=== PATIENT | female | born 1975 | race American Indian/Alaskan Native ===

== ENCOUNTER 2019-02-15 14:55 | Emergency (ER) | payer SELFPAY ==
[2019-02-15 15:14] VITALS: BP 148/95
--- NOTE | 2019-02-15 15:15 | Event Note ---
ED Screening Note Date of service: 02/15/19 Time: 15:15 ED Screening Note: 43 y/o female comes in for left foot pain s/p fall yesterday. Took nothing for pain. This initial assessment/diagnostic orders/clinical plan/treatment(s) is/are subject to change based on patients health status, clinical progression and re- assessment by fellow clinical providers in the ED. Further treatment and workup at subsequent clinical providers discretion. Patient/guardian urged not to elope from the ED as their condition may be serious if not clinically assessed and managed. Initial orders include:
--- NOTE | 2019-02-15 15:50 | XRay Report ---
Left foot, 3 views INDICATION: Pain following fall today FINDINGS: The joint space is maintained. There is no fracture or dislocation. No spurring or arthriti c change. No bone lesion or periostitis. No significant abnormality. IMPRESSION: Negative study Signer Name: Sarbjit Cervantes MD Signed: 02/15/2019 3:45 PM Workstation Name: [id number]
[2019-02-15] MEDS ORDERED: TYLENOL #3 PO ONE (16:22)
--- NOTE | 2019-02-15 16:40 | Emergency Department Report ---
ED Lower Extremity HPI - General Chief Complaint: Extremity Injury, Lower Stated Complaint: FALL LT FOOT INJURY Time Seen by Provider: 02/15/19 15:53 Source: patient Mode of arrival: Wheelchair Limitations: No Limitations - History of Present Illness Initial Comments: This is a 43-year-old female nontoxic, well nourished in appearance, no acute signs of distress presents to the ED with c/o of left foot pain 1 day. Patient stated that she had a trip and fall to left foot. Patient denies any other trauma. Patient denies any numbness, tingling, fever, chills, nausea, vomiting, chest pain, shortness of breath, headache, stiff neck. Patient denies any joint swelling or joint redness. Patient denies decreased range of motion. Patient stated has decreased gait due to pain. Patient denies any allergies or significant past medical history. MD Complaint: foot injury -: days(s) (1) Injury: Foot: Left Severity: mild Severity scale (0 -10): 8 Improves With: immobilization Worsens With: weight bearing, movement, palpation Context: fall Associated Symptoms: swelling, able to partially bear weight, ambulatory. denies: snap/pop sensation, numbness, tingling, unable to bear weight - Related Data Previous Rx's Medication Instructions Recorded Last Taken Type Acetaminophen/Codeine [Tylenol #3] 1 tab PO Q6H PRN #20 tab 01/23/15 Unknown Rx Promethazine [Phenergan] 25 mg PO Q6H PRN #20 tablet 01/23/15 Unknown Rx Acetaminophen/Codeine [Tylenol 1 tab PO Q6H PRN #12 tab 02/15/19 Unknown Rx /Codeine # 3 tab] Ibuprofen [Motrin] 600 mg PO Q8H PRN #20 tablet 02/15/19 Unknown Rx Allergies Allergy/AdvReac Type Severity Reaction Status Date / Time No Known Allergies Allergy Verified 05/07/16 17:34 ED Review of Systems ROS: Stated complaint: FALL LT FOOT INJURY Other details as noted in HPI Constitutional: denies: chills, fever Eyes: denies: eye pain, eye discharge, vision change ENT: denies: ear pain, throat pain Respiratory: denies: cough, shortness of breath, wheezing Cardiovascular: denies: chest pain, palpitations Endocrine: no symptoms reported Gastrointestinal: denies: abdominal pain, nausea, diarrhea Genitourinary: denies: urgency, dysuria, discharge Musculoskeletal: denies: back pain, joint swelling, arthralgia Skin: denies: rash, lesions Neurological: denies: headache, weakness, paresthesias Psychiatric: denies: anxiety, depression Hematological/Lymphatic: denies: easy bleeding, easy bruising ED Past Medical Hx - Past Medical History Previous Medical History?: Yes Additional medical history: headaches - Surgical History Past Surgical History?: Yes Additional Surgical History: - Social History Smoking Status: Never Smoker Substance Use Type: Alcohol - Medications Home Medications: Home Medications Medication Instructions Recorded Confirmed Last Taken Type Acetaminophen/Codeine [Tylenol #3] 1 tab PO Q6H PRN #20 tab 01/23/15 Unknown Rx Promethazine [Phenergan] 25 mg PO Q6H PRN #20 tablet 01/23/15 Unknown Rx Acetaminophen/Codeine [Tylenol 1 tab PO Q6H PRN #12 tab 02/15/19 Unknown Rx /Codeine # 3 tab] Ibuprofen [Motrin] 600 mg PO Q8H PRN #20 tablet 02/15/19 Unknown Rx ED Physical Exam - General Limitations: No Limitations General appearance: alert, in no apparent distress - Head Head exam: Present: atraumatic, normocephalic - Neck Neck exam: Present: normal inspection, full ROM. Absent: tenderness, meningismus, lymphadenopathy - Extremities Exam Extremities exam: Present: normal inspection, full ROM, tenderness, normal capillary refill. Absent: joint swelling, calf tenderness - Expanded Lower Extremity Exam Left Hip exam: Present: normal inspection, full ROM. Absent: tenderness, swelling Upper Leg exam: Present: normal inspection, full ROM. Absent: tenderness, swelling Knee exam: Present: normal inspection, full ROM. Absent: tenderness, swelling Lower Leg exam: Present: normal inspection, full ROM. Absent: tenderness, swelling Ankle exam: Present: normal inspection, full ROM. Absent: tenderness, swelling Foot/Toe exam: Present: normal inspection, full ROM, tenderness, swelling, ecchymosis. Absent: abrasion, laceration, deformity, crepidus, dislocation, erythema, amputation, puncture wound, foreign body, calcaneal tenderness, tenderness at base of 5th metatarsal, nail avulsion, subungual hematoma Neuro vascular tendon exam: Present: no vascular compromise Gait: Positive: observed and limited by pain - Back Exam Back exam: Present: normal inspection, full ROM. Absent: tenderness, CVA tenderness (R), CVA tenderness (L), muscle spasm, paraspinal tenderness, vertebral tenderness, rash noted - Neurological Exam Neurological exam: Present: alert, oriented X3, normal gait - Psychiatric Psychiatric exam: Present: normal affect, normal mood - Skin Skin exam: Present: warm, dry, intact, normal color. Absent: rash ED Course Vital Signs 02/15/19 15:13 Temperature 98.5 F Pulse Rate 77 Respiratory 16 Rate Blood Pressure 148/95 O2 Sat by Pulse 99 Oximetry - Reevaluation(s) Reevaluation #1: 02/15/19 16:37 Patient is speaking in full sentences with no signs of distress noted. ED Lower Extremity MDM - Medical Decision Making This is a 43-year-old female that presents with left foot sprain. Patient is stable and was examined by me. I referred patient to an orthopedic doctor for further evaluation for possible MRI. X-ray has been obtained and dictated by the radiologist. Patient is notified of the x-ray report with noted by the patient. Patient does have normal gait with no tenderness and no joint swelling. No ecchymosis. no joint redness or swelling. Not warm to touch. No signs of cellulites present. Patient received kam wrap. Patient was instructed to RICE therapy. Patient received Tylenol with Codeine for pain and was instructed not to operate after discharge due to possible drowsiness as stated a family member will drive her home. Patient is discharged with Motrin and Tylenol with codeine. At time of discharge, the patient does not seem toxic or ill in appearance. No acute signs of distress noted. Patient agrees to discharge treatment plan of care. No further questions noted by the patient. Critical care attestation.: If time is entered above; I have spent that time in minutes in the direct care of this critically ill patient, excluding procedure time. ED Disposition Clinical Impression: Sprain of left foot Qualifiers: Encounter type: initial encounter Qualified Code(s): S93.602A - Unspecified sprain of left foot, initial encounter Disposition: - TO HOME OR SELFCARE Is pt being admited?: No Does the pt Need Aspirin: No Condition: Stable Instructions: RICE Therapy (ED), Acetaminophen/Codeine (By mouth) Additional Instructions: Follow-up with a orthopedic doctor in 3-5 days or if symptoms worsen and cont inue return to emergency room as soon as possible. Do not operate any machinery while taking Tylenol with codeine as this may cause drowsiness. Prescriptions: Ibuprofen [Motrin] 600 mg PO Q8H PRN #20 tablet PRN Reason: Pain Acetaminophen/Codeine [Tylenol /Codeine # 3 tab] 1 tab PO Q6H PRN #12 tab PRN Reason: Pain , Severe (7-10) Referrals: PRIMARY CARE, [Referring] - 3-5 Days OBIE ELIZABETH MD [Staff Physician] - 3-[address] [facility] [place] [Outside] - 3-5 Days TSERING WATSON MD [Staff Physician] - 3-5 Days Forms: Work/School Release Form(ED)
== END 2019-02-15 17:26 | disposition home or self-care (01) ==
LOC: ED 14:55
DX: S93.602A Unspecified sprain of left foot, initial encounter (principal); W01.0XXA Fall on same level from slipping, tripping and stumbling without subsequent striking against object, initial encounter; Y93.89 Activity, other specified; Y92.89 Other specified places as the place of occurrence of the external cause; Y99.8 Other external cause status

== ENCOUNTER 2019-03-27 11:55 | Emergency (ER) | payer SELFPAY ==
--- NOTE | 2019-03-27 12:14 | Event Note ---
ED Screening Note ED Screening Note: LMP 8-15 NO DYSURIA NO FEVER OR CHILLS PMH NONE RX NONE NOT CONCERNED FOR STI PSH CSEC This initial assessment/diagnostic orders/clinical plan/treatment(s) is/are subject to change based on patients health status, clinical progression and re- assessment by fellow clinical providers in the ED. Further treatment and workup at subsequent clinical providers discretion. Patient/guardian urged not to elope from the ED as their condition may be serious if not clinically assessed and managed. Initial orders include: UA
[2019-03-27 12:15] VITALS: BP 140/87
[2019-03-27 12:54] LABS: Bacteria,Urine 1+ /HPF (Negative); Bilirubin,Urine NEG (Negative); Blood,Urine MOD (Negative); Color,Urine Yellow (Yellow); Mucus,Urine FEW /HPF; Protein,Urine <15 mg/dL mg/dL (Negative); Urobilinogen,Urine < 2.0 mg/dL (<2.0)
[2019-03-27 14:14] LABS: Hematocrit 33.3 % (30.3-42.9); Hemoglobin 11.2 gm/dl (10.1-14.3); Mean Corpuscular HGB Conc 34 % (30-34); Mean Corpuscular Volume 87 fl (79-97); Platelet Count 218 K/mm3 (140-440); Red Blood Count 3.82 M/mm3 (3.65-5.03); Red Cell Distribution Width 13.6 % (13.2-15.2)
[2019-03-27 14:17] LABS: BUN/Creatinine Ratio 17; Blood Urea Nitrogen 10 mg/dL (7-17); Calcium 8.8 mg/dL (8.4-10.2); Hemolysis Index 5
[2019-03-27] MEDS ORDERED: SUBLIMAZE IV ONE (14:29)
[2019-03-27] MEDS ORDERED: ZOFRAN IV ONE (14:29)
[2019-03-27] MEDS ORDERED: LEVAQUIN PO ONE (14:30)
--- NOTE | 2019-03-27 14:34 | Emergency Department Report ---
HPI <KEVAN GRANADOS - Last Filed: 03/27/19 18:40> - HPI HPI: Room 37 The patient is a 43-year-old female presenting with a chief complaint of abdominal pain. Patient states she's had suprapubic and lower back pain since yesterday described as a pressure. Patient's initial feels discomfort when she urinates describing as a pressure as well. Patient denies hematuria, nausea/vomiting or diarrhea. Patient denies history of fever. Patient currently gets her pain score of 7-8/10 Location: [See above] Duration: [See above] Quality: [See above] Severity: [See above] Timing: [See above] Context: [See above] Modifying factors: [See above] Associated signs and symptoms: [see above] <MAIRA MIRELES Araceli - Last Filed: 03/29/19 01:57> - General Chief Complaint: Abdominal Pain Time Seen by Provider: 03/27/19 12:12 ED Past Medical Hx <KEVAN GRANADOS - Last Filed: 03/27/19 18:40> - Past Medical History Additional medical history: headaches - Surgical History Additional Surgical History: - Family History Family history: no significant - Social History Smoking Status: Former Smoker (none 4 years) Substance Use Type: None (denies illicit drug use), Alcohol (occasional) <MAIRA MIRELES Araclei - Last Filed: 03/29/19 01:57> - Medications Home Medications: Home Medications Medication Instructions Recorded Confirmed Last Taken Type Acetaminophen/Codeine [Tylenol #3] 1 tab PO Q6H PRN #20 tab 01/23/15 Unknown Rx Promethazine [Phenergan] 25 mg PO Q6H PRN #20 tablet 01/23/15 Unknown Rx Acetaminophen/Codeine [Tylenol 1 tab PO Q6H PRN #12 tab 02/15/19 Unknown Rx /Codeine # 3 tab] Ibuprofen [Motrin] 600 mg PO Q8H PRN #20 tablet 02/15/19 Unknown Rx HYDROcodone/APAP 5-325 [[place] 1 each PO Q6HR PRN #10 tablet 03/27/19 Unknown Rx 5/325] Ibuprofen [Motrin 800 MG tab] 800 mg PO Q8HR PRN #20 tablet 03/27/19 Unknown Rx levoFLOXacin [Levaquin TAB] 500 mg PO QDAY #10 tablet 03/27/19 Unknown Rx ED Review of Systems ROS: Stated complaint: ABD PAIN/BACK PAIN Other details as noted in HPI <KEVAN GRANADOS - Last Filed: 03/27/19 18:40> ROS: Stated complaint: ABD PAIN/BACK PAIN Other details as noted in HPI Constitutional: denies: fever Eyes: denies: eye pain ENT: denies: throat pain Respiratory: no symptoms reported Cardiovascular: denies: chest pain Endocrine: no symptoms reported Gastrointestinal: abdominal pain. denies: nausea, vomiting Genitourinary: dysuria. denies: hematuria Musculoskeletal: back pain Neurological: denies: headache <MAIRA MIRELES - Last Filed: 03/29/19 01:57> Physical Exam - Physical Exam Vital Signs: Vital Signs 03/27/19 12:13 Temperature 98.9 F Pulse Rate 88 Respiratory 16 Rate Blood Pressure 140/87 O2 Sat by Pulse 99 Oximetry <KEVAN GRANADOS - Last Filed: 03/27/19 18:40> - Physical Exam Vital Signs: Vital Signs 03/27/19 12:13 Temperature 98.9 F Pulse Rate 88 Respiratory 16 Rate Blood Pressure 140/87 O2 Sat by Pulse 99 Oximetry Physical Exam: GENERAL: The patient is well-developed well-nourished female lying on stretcher not appearing to be in acute distress. [] HEENT: Normocephalic. Atraumatic. Extraocular motions are intact. Patient has moist mucous membranes. NECK: Supple. Trachea midline CHEST/LUNGS: Clear to auscultation. There is no respiratory distress noted. HEART/CARDIOVASCULAR: Regular. There is no tachycardia. There is no gallop rub or murmur. ABDOMEN: Abdomen is soft, with discomfort to palpation in suprapubic, left lower quadrant and right lower quadrant. There is no rebound or guarding. Patient has normal bowel sounds. There is no abdominal distention. SKIN: There is no rash. There is no edema. There is no diaphoresis. NEURO: The patient is awake, alert, and oriented. The patient is cooperative. The patient has normal speech MUSCULOSKELETAL: There is no CVA tenderness. There is no evidence of acute injury. <MAIRA MIRELES - Last Filed: 03/29/19 01:57> ED Course Vital Signs 03/27/19 12:13 Temperature 98.9 F Pulse Rate 88 Respiratory 16 Rate Blood Pressure 140/87 O2 Sat by Pulse 99 Oximetry <KEVAN GRANADOS - Last Filed: 03/27/19 18:40> Vital Signs 03/27/19 12:13 Temperature 98.9 F Pulse Rate 88 Respiratory 16 Rate Blood Pressure 140/87 O2 Sat by Pulse 99 Oximetry <KAYCEEARMAND LamaMAIRA Araceli - Last Filed: 03/29/19 01:57> ED Medical Decision Making - Lab Data Result diagrams: 03/27/19 13:45 03/27/19 13:45 - Radiology Data Radiology results: report reviewed Patient: RAFIQ HARRISON MR#: [id number] : 1975 Acct:[id number] Age/Sex: 43 / F ADM Date: 03/27/19 Loc: ED Attending Dr: Ordering Physician: MAIRA MIRELES MD Date of Service: 03/27/19 Procedure(s): CT abdomen pelvis w con Accession Number(s): [id number] cc: MAIRA MIRELES MD CT abdomen pelvis w con INDICATION: lower abdominal pain, low back pain. TECHNIQUE: All CT scans at this location are performed using CT dose reduction for ALARA by means of automated exposure control. COMPARISON: None available. FINDINGS: Lung bases are clear. Liver, gallbladder, spleen, pancreas, kidneys and adrenals appear negative. Abdominal aorta is normal. Pelvis Normal appendix. 1.7 cm left ovarian cyst. No free fluid. No bowel abnormalities. Bilateral sacroiliitis, left greater than right. No acute skeletal abnormalities. IMPRESSION: 1. 1.7 cm left ovarian cyst. Otherwise negative soft tissues of the abdomen and pelvis. 2. Bilateral sacroiliitis, left greater than right. Signer Name: Avni Gamble MD Signed: 03/27/2019 6:03 PM Workstation Name: [id number] Transcribed By: TM Dictated By: Avni Gamble MD Electronically Authenticated By: Avni Gamble MD Signed Date/Time: 03/27/191802 DD/ 57 TD/TT: <KEVAN GRANADOS - Last Filed: 03/27/19 18:40> - Lab Data Result diagrams: 03/27/19 13:45 03/27/19 13:45 - Differential Diagnosis cystitis, pyelonephritis, appendicitis, diverticulitis <MAIRA MIRELES - Last Filed: 03/29/19 01:57> Critical care attestation.: If time is entered above; I have spent that time in minutes in the direct care of this critically ill patient, excluding procedure time. <KEVAN GRANADOS - Last Filed: 03/27/19 18:40> Critical care attestation.: If time is entered above; I have spent that time in minutes in the direct care of this critically ill patient, excluding procedure time. <MAIRA MIRELES - Last Filed: 03/29/19 01:57> ED Disposition <ROBERTAALEX' M - Last Filed: 03/27/19 18:40> Is pt being admited?: No Does the pt Need Aspirin: No <MAIRA MIRELES - Last Filed: 03/29/19 01:57> Clinical Impression: Acute abdominal pain, UTI (urinary tract infection) Disposition: TO HOME OR SELFCARE Condition: Stable Instructions: Abdominal Pain (ED) Additional Instructions: Return to the emergency department should you develop worsening symptoms, inability to tolerate food or liquids, high fever or any other concerns Prescriptions: levoFLOXacin [Levaquin TAB] 500 mg PO QDAY #10 tablet Ibuprofen [Motrin 800 MG tab] 800 mg PO Q8HR PRN #20 tablet PRN Reason: Pain , Severe (7-10) HYDROcodone/APAP 5-325 [[place] 5/325] 1 each PO Q6HR PRN #10 tablet PRN Reason: Pain Referrals: MAURO DOAN MD [Primary Care Provider] - 3-5 Days
--- NOTE | 2019-03-27 18:08 | Cat Scan Report ---
CT abdomen pelvis w con INDICATION: lower abdominal pain, low back pain. TECHNIQUE: All CT scans at this location are performed using CT dose reduction for ALARA by means of automated e xposure control. COMPARISON: None available. FINDINGS: Lung bases are clear. Liver, gallbladder, spleen, pancreas, kidneys and adrenals appear negative. Abd ominal aorta is normal. Pelvis Normal appendix. 1.7 cm left ovarian cyst. No free fluid. No bowel abnormalities. Bilateral sacroiliitis, left greater than right. No acute skeletal abnormalities. IMPRESSION: 1. 1.7 cm left ovarian cyst. Otherwise negative soft tissues of the abdomen and pelvis. 2. Bilateral sacroiliitis, left greater than right. Signer Name: Avni Gamble MD Signed: 03/27/2019 6:03 PM Workstation Name: [id number]
== END 2019-03-27 19:05 | disposition home or self-care (01) ==
LOC: ED 11:55
DX: N39.0 Urinary tract infection, site not specified (principal)
CPT/HCPCS: 36415; 74177; 80048; 81001; 85027; 87086; 96374; 96375; 99284; J2405; J3010; Q9967